=== PATIENT | female | born 1945 | race Caucasian/White ===

== ENCOUNTER 2024-12-19 02:57 | Emergency (ER) | payer MEDICARE, BC, SELFPAY ==
[2024-12-19 02:59] VITALS: BMI 26.8
[2024-12-19 03:06] VITALS: BP 152/72
--- NOTE | 2024-12-19 03:07 | ED.GENMED ---
History of Present Illness
<Brooke Guerra MD, Resident - Last Filed: 12/19/24 06:23>
General
Chief Complaint: Heart Rate Problem
Source: patient
Exam Limitations: none
Time Seen by Provider: 12/19/24 02:59
Nursing documentation reviewed up to this point in time: agreed with
History of Present Illness
History of Present Illness:
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 She says it was a usual day for her, and went to bed around 1am. She awoke about 15 minutes later and felt like her heart was racing. She then took 2 nitro
without change in symptoms. Per EMS, she her heart rate went up to 120s-130s on their evaluation. In the ED, she denies chest pain, shortness of breath, lightheadedness, dizziness.
Past History
<Brooke Guerra MD, Resident - Last Filed: 12/19/24 06:23>
Past History
ED Past Medical History: ND and Other (peripheral neuropathy)
ED Past Surgical History: Cholecystectomy and Other (Tummy tuck, eyelids, breast implants/removal)
Social History
Tobacco: Former smoker
Alcohol: None
Drug: None
Living: alone
Family History
Family History: Other (noncontributory)
Review of Systems
<Brooke Guerra MD, Resident - Last Filed: 12/19/24 06:23>
Review of Systems
Allergies reviewed?: Yes
Constitutional: Reports no symptoms; Denies fever or chills
EENT: Reports no symptoms
Respiratory: Reports no symptoms; Denies cough, hemoptysis or trouble breathing
Cardiac: Reports palpitations; Denies chest pain, diaphoresis or syncope
ABD/GI: Reports no symptoms; Denies abdominal pain (discomfort 2/2 neuropathy at bra line), nausea, vomiting, diarrhea, constipated, bloody stools or black stools
: Reports no symptoms; Denies dysuria or difficulty voiding
Musculoskeletal: Reports no symptoms
Skin: Reports other (chronic neuropathy)
Neurological: Reports no symptoms; Denies dizzy, headache, weakness or numbness
Endocrine: Reports no symptoms
Hematologic/Lymphatic: Reports no symptoms
Psychiatric: Reports no symptoms; Denies anxiety
Phy Exam
<Brooke Guerra MD, Resident - Last Filed: 12/19/24 06:23>
General Physical Exam
General Presentation: well appearing and no apparent distress
General age: appears stated age
General Skin: warm and dry
General Habitus: normal
General Mental: alert
General Hydration: appears well hydrated
Cardiovascular Exam
Cardiovascular Exam: regular rate/rhythm
Pulmonary Exam
Pulmonary Exam: no respiratory distress, no stridor, no wheezing and no cough
Oxygen Status: room air
Gastrointestinal Exam
Gastrointestinal Exam: non tender, soft and non distended
Neurological Exam
Neurological Exam: alert and speech normal
Musculoskeletal Exam
Musculoskeletal Exam: edema (bilateral lower extremity edema symmetric )
Skin Exam
Skin Exam: normal color and warm/dry
Psychiatric Exam
Psychiatric Exam: normal mood/affect
Course
<Brooke Guerra MD, Resident - Last Filed: 12/19/24 06:23>
Orders/Labs/Results
Orders:
Orders
12/19/24 02:50
D-Dimer Routine
12/19/24 02:58
Electrocardiogram (*1) Urgent
Reason for Study: Chest Pain
Cardiac Monitoring- Treatment ONCE
EKG- Treatment ONCE
IV Insert/Care/Rem.- Treatment PRN
12/19/24 03:12
Complete Blood Count/With Diff Urgent
Comprehensive Metabolic Panel Urgent
Troponin I Urgent
0.9% Sodium Chloride 500 ml [Nss] 500 ml IV BOLUS
12/19/24 03:53
Add On- LAB Urgent
Tests Added?: d-dimer
12/19/24 04:57
CT Chest PE Study Urgent
Comment:
Reason For Exam: tachycardia, elevated Ddimer
Abnormal Lab Results
12/19/24 12/19/24
02:50 03:12
MPV 10.6 H fL
(7.4-10.4)
Absolute Monos (auto) 0.7 H 10^3/uL
(0.1-0.6)
Monocytes % 10.1 H %
(1.7-9.3)
D-Dimer 1.47 H ug/mlFEU
(0.00-0.50)
BUN 27 H mg/dl
(7-17)
Glucose 122 H mg/dl
(70-99)
12/19/24 03:12
12/19/24 03:12
Vital Signs
Initial and Last Documented VS:
Initial Vital Signs
Temp Pulse Resp Pulse Ox
98.1 F 92 25 94
12/19/24 02:59 12/19/24 02:59 12/19/24 02:59 12/19/24 02:59
Last Documented Vital Signs
Temp Pulse Resp BP Pulse Ox
98.1 F 83 20 133/54 91
12/19/24 02:59 12/19/24 06:00 12/19/24 06:00 12/19/24 06:00 12/19/24 04:45
<Owen Cummings, DO - Last Filed: 12/19/24 06:16>
Orders/Labs/Results
Orders:
Orders
12/19/24 02:50
D-Dimer Routine
12/19/24 02:58
Electrocardiogram (*1) Urgent
Reason for Study: Chest Pain
Cardiac Monitoring- Treatment ONCE
EKG- Treatment ONCE
IV Insert/Care/Rem.- Treatment PRN
12/19/24 03:12
Complete Blood Count/With Diff Urgent
Comprehensive Metabolic Panel Urgent
Troponin I Urgent
0.9% Sodium Chloride 500 ml [Nss] 500 ml IV BOLUS
12/19/24 03:53
Add On- LAB Urgent
Tests Added?: d-dimer
12/19/24 04:57
CT Chest PE Study Urgent
Comment:
Reason For Exam: tachycardia, elevated Ddimer
Abnormal Lab Results
12/19/24 12/19/24
02:50 03:12
MPV 10.6 H fL
(7.4-10.4)
Absolute Monos (auto) 0.7 H 10^3/uL
(0.1-0.6)
Monocytes % 10.1 H %
(1.7-9.3)
D-Dimer 1.47 H ug/mlFEU
(0.00-0.50)
BUN 27 H mg/dl
(7-17)
Glucose 122 H mg/dl
(70-99)
12/19/24 03:12
12/19/24 03:12
Vital Signs
Initial and Last Documented VS:
Initial Vital Signs
Temp Pulse Resp Pulse Ox
98.1 F 92 25 94
12/19/24 02:59 12/19/24 02:59 12/19/24 02:59 12/19/24 02:59
Last Documented Vital Signs
Temp Pulse Resp BP Pulse Ox
98.1 F 83 20 133/54 91
12/19/24 02:59 12/19/24 06:00 12/19/24 06:00 12/19/24 06:00 12/19/24 04:45
<Brooke Guerra MD, Resident - Last Filed: 12/19/24 06:23>
MDM/Problems Addressed
Differential Diagnosis Includes:
electrolyte abnormality, PE, dehydration, anxiety
MDM/Problems Addressed:
79yo F with PMH ND presenting for evaluation of racing heart.
Per EMS, HR up to 120s-130s, however no tachycardia here.
Patient reports resolution of symptomatic tachycardia en route to hospital.
Will check CBC, CMP, troponin, D Dimer.
<Brooke Guerra MD, Resident - Last Filed: 12/19/24 06:23>
*Critical Care Note
Total Time (30-74mins, 75-104mins- exclusive of procedures): Not Applicable
<Brooke Guerra MD, Resident - Last Filed: 12/19/24 06:23>
Update Note
Update Note:
0500: D Dimer elevated at 1.47, will get CT PE.
CTA chest with IV contrast
IMPRESSION:
No pulmonary embolism. No aortic dissection or aneurysm. Mild cardiomegaly and coronary artery disease.
Lungs clear aside from dependent atelectasis. No pneumothorax or pleural effusion. Liver is enlarged.
Finalized at 5:50 AM EST
No evidence of PE. Suspect brief tachycardia as side effect of albuterol inhaler. Stable for discharge home with outpatient PCP follow up. Discussed plan with patient and son at bedside-- they are understanding and agreeable with plan.
<Owen Cummings DO - Last Filed: 12/19/24 06:16>
Update Note
Update Note:
0500: D Dimer elevated at 1.47, will get CT PE.
CTA chest with IV contrast
IMPRESSION:
No pulmonary embolism. No aortic dissection or aneurysm. Mild cardiomegaly and coronary artery disease.
Lungs clear aside from dependent atelectasis. No pneumothorax or pleural effusion. Liver is enlarged.
Finalized at 5:50 AM EST
ED Attending Note
<Brooke Guerra MD, Resident - Last Filed: 12/19/24 06:23>
-
Portions of this chart may have been created with voice recognition software.� Occasional wrong word or��sound alike� substitutions may have occurred due to the inherent limitations of voice recognition software.
<Owen Cummings, - Last Filed: 12/19/24 06:16>
ED Attending Note
Patient seen and examined by attending physician: Yes
I performed a history and physical exam of patient and discussed management with resident, I reviewed resident's note and agree with documented findings and plan of care.: Yes
ED Attending Note:
79-year-old female presents to the emerged part with tachycardia. Patient states that she went to bed at 1 AM prior to going to bed she took a few puffs of her albuterol inhaler. Shortly thereafter she felt tachycardic and became concerned so she
took nitroglycerin. She called 911 and came to the emergency department for evaluation. Denies chest pain or shortness of breath at this time. States that symptoms had resolved completely upon arrival to the hospital. Patient was seen in
conjunction with the certified medical transcriptionist. I have reviewed and agree with her history and treatment plan. On independent physical exam I have a healthy appearing 79-year-old female who is accompanied by her son. She is in no acute distress. On exam
heart is regular rate rhythm and lungs are clear to auscultation bilaterally without wheezes rales or rhonchi present.
Lab work and CT scan reviewed with patient and son. It is likely that patient took albuterol which caused her tachycardia. She also admits to drinking extra caffeine. I asked her to cut both of these out and use the albuterol only as needed for
lung congestion. She states that she had been using it to help clear her facial and sinus congestion. With limited to lung congestion in nature and decreased to bouts of tachycardia. She will follow-up with her family doctor and possibly get
leave albuterol or Xopenex if symptoms persist. Patient has no further questions at this time and will follow-up. Patient being discharged in much improved condition.
Discharge Plan
Departure
Patient Disposition: Home (Routine Discharge)
Date of Disposition: 12/19/24
Time of Disposition: 06:08
Patient with high blood pressure during this ER visit?: Yes
Discharge Problem:
Heart palpitations
Instructions: Palpitations (DC), BLOOD PRESSURE
Prescriptions:
No Action
Brilinta 90 mg Tablet
90 mg PO BID Qty: 180 5RF
atorvastatin 80 mg Tablet
80 mg PO QPM Qty: 90 5RF
aspirin 81 mg Tablet,Chewable
81 mg PO DAILY Qty: 1 0RF
nitroglycerin 0.4 mg Tablet, Sublingual
0.4 mg sublingual [id number] PRN (Reason: chest pain) Qty: 25 5RF
metoprolol succinate 25 mg Tablet Extended Release 24 Hr
25 mg PO DAILY Qty: 90 5RF
lisinopril 2.5 mg Tablet
2.5 mg PO DAILY Qty: 9 5RF
Referrals:
Jaime Haney MD [Family Provider] - Call in 1-3 days for appt (Call your Primary Care Provider to schedule appointment after being seen in ER.)
Activity Restrictions/Additional Instructions:
You were seen in the Emergency Room for fast heart rate (palpitations).
Your blood work showed elevated D-Dimer, but fortunately your chest CT showed you do not have any blood clot in your lung.
While in the ER, your heart rate was normal. Your blood pressure was elevated.
Your palpitations were likely a side effect from your albuterol inhaler.
Call your Primary Care Provider to schedule an appointment after being seen in the Emergency Room. They will recheck your blood pressure and discuss ways to monitor your heart rate.
Return to the Emergency Room for worsening symptoms, palpitations, chest pain, shortness of breath, or new concerns.
Interventions
Interventions:
*Risk Screen - Suicide Last Done: 12/19/24 02:59
*General Assessment Last Done: 12/19/24 02:59
*Neglect/Abuse Screening Last Done: 12/19/24 02:59
ED- Fall Risk Assessment Last Done: 12/19/24 02:59
*ED COVID-19 Vaccine History Last Done: 12/19/24 02:59
ED- Cardiac Assessment Last Done: 12/19/24 02:59
ED- Pulmonary Assessment Last Done: 12/19/24 02:59
Discharge Date and Time
Print Language: PORTUGUESE
[2024-12-19 03:34] LABS: % Basophils 0.8 % (0-2); % Eosinophils 2.8 % (0-6); % Immature Granulocytes 0.3 % (0-0.5); % Lymphocytes 29.6 % (20.5-51.1); % Monocytes 10.1 % (1.7-9.3); % Neutrophils 56.4 % (42.2-75.2); Absolute Basophils 0.1 10^3/uL (0-0.2); Absolute Eosinophils 0.2 10^3/uL (0-0.7); Absolute Lymphocytes 2.1 10^3/uL (1.2-3.4); Absolute Monocytes 0.7 10^3/uL (0.1-0.6); Hematocrit 43.1 % (37.0-47.0); Hemoglobin 14.5 g/dL (12.0-16.0); Mean Corp Hgb Conc. 33.6 g/dL (33.0-37.0); Mean Corpuscular Hgb 30.7 pg (27.0-31.0); Mean Corpuscular Volume 91.3 fL (81.0-99.0); Mean Platelet Volume 10.6 fL (7.4-10.4); Nucleated Red Blood Cells % 0 %; Platelet Count 208 10^3/uL (130-400); Red Blood Cell Count 4.72 10^6/uL (4.20-5.40); Red Cell Dist. Width 11.9 % (11.5-14.5); White Blood Cell Count 7.1 10^3/uL (4.8-10.8)
[2024-12-19] MEDS: NSS 500 IV (03:42)
[2024-12-19 03:47] LABS: ALT (SGPT) 22 U/L (0-35); AST (SGOT) 25 U/L (14-36); Albumin 4.3 g/dl (3.5-5.0); Alkaline Phosphatase 82 U/L (38-126); Blood Urea Nitrogen 27 mg/dl (7-17); Calcium 9.4 mg/dl (8.4-10.2); Carbon Dioxide 28 mmol/L (22-30); Chloride 99 mmol/L (98-107); Estimated Creatinine Clearance 59 ml/min; Glucose 122 mg/dl (70-99); Potassium 3.9 mmol/L (3.5-5.1); Sodium 136 mmol/L (135-145); Total Bilirubin 0.8 mg/dl (0.2-1.3); eGFR > 60.00
[2024-12-19 04:00] VITALS: BP 153/64
[2024-12-19 04:00] LABS: Troponin I 0.014 ng/ml
[2024-12-19 04:21] VITALS: BP 159/66
[2024-12-19 04:49] LABS: D-Dimer 1.47 ug/mlFEU (0.00-0.50)
[2024-12-19 05:00] VITALS: BP 157/65
[2024-12-19 06:00] VITALS: BP 133/54
== END 2024-12-19 06:49 | disposition home or self-care (01) ==
LOC: EMR 02:57
PROVIDERS: EMERGENCY PHYSICIAN Student in an Organized Health Care Education/Training Program; FAMILY PHYSICIAN Student in an Organized Health Care Education/Training Program
DX: R00.2 Palpitations (principal); I25.2 Old myocardial infarction; G62.9 Polyneuropathy, unspecified; I25.10 Atherosclerotic heart disease of native coronary artery without angina pectoris; Z87.891 Personal history of nicotine dependence; Z90.49 Acquired absence of other specified parts of digestive tract
CPT/HCPCS: 99284; 96360; 71275; 80053; 84484; 85025; 85379; 93005; Q9967